=== PATIENT | female | born 1990 | race Caucasian/White ===

== ENCOUNTER 2017-02-15 15:19 | Inpatient (IN) | payer OTHER ==
[~2017-02-15] VITALS: Ht 157.5 cm; Wt 68.0 kg
--- NOTE | ~2017-02-15 | FD ---
ADMIT: 02/15/2017 RM/LOC: 227 [facility] MR#: [id number] [address] [facility] [address] [place] [id number] KITA CALDWELL [address] [place] [id number] Final Diagnosis SEX: F AGE: 26 : 1990 ADMISSION DATE: 02/15/2017 DISCHARGE DATE: 02/17/2017 FINAL DIAGNOSIS: 1. Term intrauterine at 38 weeks. 2. Preeclampsia. 3. Shoulder dystocia. PROCEDURE: Spontaneous vaginal delivery. Therese Sarah MD/ brie JOB #: [id number] CC: Therese Sarah MD, Attending Physician FAMILY PHYSICIAN, Family Physician
[2017-02-19] MEDS ORDERED: MOTRIN-DPS800 MG PO (14:16)
[2017-02-19] MEDS ORDERED: PRENATAL VIT1 TAB PO (14:16)
[2017-02-19] MEDS ORDERED: NIPPLECREAM TP (14:16)
[2017-02-19] MEDS ORDERED: COLACE-DPS100 MG PO (14:16)
--- NOTE | 2017-03-02 07:25 | HP ---
ADMIT: 02/15/2017 RM/LOC: 227 [facility] MR#: [id number] [address] [place] [id number] KITA CALDWELL [address] [place] [address] History and Physical SEX: F AGE: 26 : 1990 DATE OF SERVICE: INDICATIONS FOR ADMISSION: This is a 26-year-old -0-0-2, who was referred by Dr. Madisyn Dickinson to Labor and Delivery for induction of labor at 37 weeks and 6 days for preeclampsia at term. Her has otherwise been uncomplicated. PAST MEDICAL HISTORY: History of anemia. PAST SURGICAL HISTORY: None. She has had two prior spontaneous vaginal deliveries at term. HEALTH CARE MAINTENANCE: She is up-to-date on her Pap smear. SOCIAL HISTORY: No tobacco. No alcohol use. No drug use. She is . Works at [employer] on [employer]. ALLERGIES: NO KNOWN DRUG ALLERGIES. MEDICATIONS: She has taken iron. OBSTETRIC LABORATORY DATA: GBS negative. Diabetes 1-hour Glucola was 120. Quad screen was negative. Hepatitis B surface antigen was negative. RPR was nonreactive. She is rubella immune. Gonorrhea and chlamydia were negative. Blood type is A positive. Antibody screen was negative. HIV was negative. PHYSICAL EXAMINATION: VITAL SIGNS: Upon presentation to Labor and Delivery; blood pressure was 124/82, pulse is 107, respirations 16, temp 97.6 degrees, 95% on room air. heart tones baseline is 145, moderate variability, positive accelerations, no decelerations noted. Occasional irritability, but no overt contractions. ADMIT: 02/15/2017 RM/LOC: 227 [facility] MR#: [id number] [address] [place] [id number] KITA CALDWELL [address] [place] [address] History and Physical SEX: F AGE: 26 : 1990 HEART: Regular rate and rhythm. No murmurs, rubs, or gallops. LUNGS: Clear to auscultation bilaterally. ABDOMEN: Gravid. EXTREMITIES: No significant edema. DTRs normal. ASSESSMENT AND PLAN: This is a 26-year-old 3 para 2-0-0-2, with an intrauterine at 37-6/7th weeks, here for induction of labor for preeclampsia. 1. We will initiate induction of labor with Pitocin. 2. Group B streptococcus negative. Penicillin was not indicated. 3. Blood type is A positive. She is rubella immune. Anticipate normal spontaneous vaginal delivery. Therese Sarah MD/ monica JOB #: [id number] CC: Madisyn Dickinson, Attending Physician NO FAMILY PHYSICIAN, Family Physician
--- NOTE | 2017-03-10 08:13 | OR ---
ADMIT: 02/15/2017 RM/LOC: 227 [facility] MR#: [id number] [address] [id number] KITA CALDWELL [address] [place] [address] Operative/Delivery Room Report SEX: F AGE: 26 : 1990 SURGERY DATE: 02/16/2017 SURGEON: Therese Sarah MD PREOPERATIVE DIAGNOSES: 1. Intrauterine at 38-0/7th weeks. 2. Preeclampsia. POSTOPERATIVE DIAGNOSES: 1. Intrauterine at 38-0/7th weeks. 2. Preeclampsia. 3. Shoulder dystocia less than 15 seconds. ANTIBIOTICS: None. ANESTHESIA: Epidural. FINDINGS: Viable female infant with scores of 9 and 10 and a weight of 7 pounds 4.5 ounces (3.3 kg). Intact placenta with three-vessel cord. No perineal lacerations noted. ESTIMATED BLOOD LOSS: 250 mL. INDICATIONS FOR PROCEDURE: This is a 26-year-old -0-0-2, who presented to Labor and Delivery with a diagnosis of preeclampsia at term, for induction of labor. Her had otherwise been uncomplicated. She did have spontaneous rupture of membranes and did progress normally through labor and was found to be complete. DESCRIPTION OF PROCEDURE: With maternal expulsive efforts, head was delivered over intact perineum. After delivery of the head, it restituted to KRISTI position. Interval sign was noted. Attempt with maternal expulsive efforts with gentle traction was performed, and no significant change in position of shoulder was noted. Maternal expulsive efforts were stopped. Maternal position was changed to Minh and suprapubic pressure was applied in a direction to help adapt shoulder. Surgeon's hand was then placed underneath the symphysis and placed pressure upon the left scapula because the left shoulder was anterior, and clockwise pressure was pushed on the scapulas in order to adduct the left shoulder. All these methods applied led to quick rotation of the and ADMIT: 02/15/2017 RM/LOC: 227 [facility] MR#: [id number] [address] [id number] KITA CALDWELL [address] [place] [address] Operative/Delivery Room Report SEX: F AGE: 26 : 1990 delivery of the anterior shoulder. Maternal expulsive efforts were then continued and the rest of the infant delivered without problem. was placed on mother's chest and was vigorous. Delayed cord clamping was employed x1 minute. Total shoulder dystocia was less than 15 seconds. Once delayed cord clamping was employed for a minute, cord was clamped and cut. Cord blood was collected. Placenta then delivered spontaneously intact with three-vessel cord. On exam of the perineum, there were no significant lacerations noted. No cervical lacerations were noted. Sponge and instrument counts were correct x2. COMPLICATIONS: Shoulder dystocia of left anterior shoulder of less than 15 seconds. Therese Sarah MD/ monica JOB #: [id number] CC: Madisyn Dickinson, Attending Physician NO FAMILY PHYSICIAN, Family Physician
== END 2017-02-17 12:15 | disposition home or self-care (01) | DRG 775 ==
LOC: BC 15:19 → 2LDRP 15:19 → BC 03-02 08:00
PROVIDERS: ADMIT Obstetrics & Gynecology
DX: O14.94 Unspecified pre-eclampsia, complicating childbirth (principal); O66.0 Obstructed labor due to shoulder dystocia; Z3A.37 37 weeks gestation of pregnancy; Z37.0 Single live birth